=== PATIENT | female | born 1955 | race Caucasian/White ===

== ENCOUNTER 2017-02-11 12:20 | Observation (INO) | payer OTHER ==
[2017-02-11 12:25] VITALS: BMI 29.0
--- NOTE | 2017-02-11 12:44 | PDOC ---
History of Present Illness - General History Source: Patient Exam Limitations: No Limitations - History of Present Illness Initial Comments: 02/11/17 12:43 Patient is a 61 year old female with history of HTN and Hypothyroid c/o chest pain for one day. Patint states the pain started last night after dinner (18 hours ago). The pain started at rest, was 10/10 and radiated to the back. It was relieved to 7/10 with 2 Advil and patient went to sleep. Pain was initially minor on waking but went back up to 10/10 with an associated painful redness and swelling in her left index finger and along the toe pads of both her feet. Patient endorses having these symptoms at least two previous times: once 15 days ago and once some time before that. Patient also endorsing an epigastric "fullness/bloating" on exertion. Endorses coughing, hiccups and constipation; denies headache, fever, chills, recent illness, shortness of breath, palpations, abdominal pain, nausea, vomiting, and diarrhea. History of paternal PA at 49-50 Patient recently returned from a trip [place] PCP: Dr. Cavazos <Jorge Faria - Last Filed: 02/12/17 10:02> <Eleni Tellez - Last Filed: 02/13/17 15:41> - General Chief Complaint: Chest Pain Stated Complaint: CHEST PAIN, LT HAND/LEG SWELLING Time Seen by Provider: 02/11/17 12:38 Past History - Past Medical History HTN: Yes Thyroid Disease: Yes (HYPO.) - Surgical History Abdominal Surgery: Yes Neurologic Surgery: Yes (right knee surgery) - Suicide/Smoking/Psychosocial Hx Smoking Status: No Smoking History: Never smoked Have you smoked in the past 12 months: No Number of Cigarettes Smoked Daily: 0 Hx Alcohol Use: Yes (SOCIAL.) Drug/Substance Use Hx: No Substance Use Type: None <Jorge Faria - Last Filed: 02/12/17 10:02> <Eleni Tellez - Last Filed: 02/13/17 15:41> - Past Medical History Allergies/Adverse Reactions: Allergies Allergy/AdvReac Type Severity Reaction Status Date / Time No Known Allergies Allergy Verified 02/11/17 12:22 Home Medications: Ambulatory Orders Levothyroxine [Synthroid -] 25 mcg PO DAILY 04/08/15 Lisinopril [Zestril] 20 mg PO DAILY 02/11/17 Atorvastatin Ca [Lipitor] 10 mg PO HS #60 tablet 02/12/17 Lisinopril [Prinivil] 20 mg PO DAILY tablet 02/12/17 Review of Systems - Review of Systems Able to Perform ROS?: Yes Comments:: GEN: Denies fever, chills, recent illness HEENTM: Denies sore throat, neck pain, changes in vision, changes in hearing, ear pain, tinnitus Respiratory: +hiccups, +cough; Denies wheezing, shortness of breath Cardiac: +chest pain; Denies palpitations, lightheadedness, diaphoresis ABD/GI: Denies abdominal pain, nausea, vomiting, diarrhea, constipation : Denies dysuria, burning on urination, increased frequency of urination Musculoskeletal: Pain and swelling of the left first index finger and the pads of the MTP joints of both feet Integumentary: Denies rashes, bruises Neurological: Denies QUIÑONEZ, weakness, dizziness, loss of consciousness, tingling, numbness Hematologic/Lymphatic: Denies anemia, easy bleeding, history of blood clots. All Other Systems Reviewed and Negative Is the patient limited Luxembourger proficient: No <Jorge Faria - Last Filed: 02/12/17 10:02> *Physical Exam - Vital Signs Last Vital Signs Temp Pulse Resp BP Pulse Ox 98 F 104 H 18 156/89 98 02/11/17 12:22 02/11/17 12:22 02/11/17 12:22 02/11/17 12:22 02/11/17 12:22 - Physical Exam Comments: GENERAL: AAOx3, nourished and generally well appearing, NAD HEAD: NCAT EYES: PERRLA, EOMI, sclera anicteric, conjunctiva clear ENT: Auricles normal inspection, hearing grossly normal, nares patent, no nasal discharge, no congestion, oropharynx clear without exudates, MMM NECK: supple, normal ROM, no LAD, no JVD, no masses, no crepitus RESP: speaking in full sentences, lungs CTAB, symmetrical chest expansion, no respiratory distress HEART: tachycardic, regular rhythm, normal S1-S2, no MRG, peripheral pulses normal and equal bilaterally ABDOMEN: soft, NTND, nlBSx4, no guarding, no rebound, no masses MUSCULOSKELETAL: no CVA Tenderness EXTREMITIES: normal inspection, moving all extremities, full ROM, strength 5/5, sensation grossly intact; left second digit, left pad of first MTP and the pads of the right MTP are erythematous, edematous and mildly ttp NEUROLOGICAL: CN II-XII grossly intact, normal speech, normal gait, no focal sensorimotor deficits SKIN: warm, dry, normal turgor, no rashes or lesions noted. <Jorge Faria - Last Filed: 02/12/17 10:02> - Vital Signs Last Vital Signs Temp Pulse Resp BP Pulse Ox 97.9 F 86 20 124/65 96 02/12/17 07:44 02/12/17 07:44 02/12/17 09:00 02/12/17 07:44 02/12/17 09:00 <Eleni Tellez - Last Filed: 02/13/17 15:41> Heart Score/ECG Review - History History: Moderately suspicious - Electrocardiogram EKG: Non specific repolarization disturbance - Age Age: 45-65 - Risk Factors Risk Factors Heart Score: Yes Hx Hypertension, Yes Positive family hx of cardiac disease, Yes Hx Obesity Based on the list above the patient has:: >/=3 risk factors or Hx atherosclerotic disease - Troponin Troponin: </= normal limit - Score Heart Score - Total: 5 <Jorge Faria - Last Filed: 02/12/17 10:02> ED Treatment Course - LABORATORY CBC & Chemistry Diagram: 02/12/17 05:35 02/12/17 05:35 <Jorge Faria - Last Filed: 02/12/17 10:02> - LABORATORY CBC & Chemistry Diagram: 02/12/17 05:35 02/12/17 05:35 - ADDITIONAL ORDERS Additional order review: 02/11/17 14:00 RBC 4.72 MCV 87.6 MCHC 32.5 RDW 13.9 MPV 9.4 Neutrophils % 70.6 Lymphocytes % 20.5 Monocytes % 6.2 Eosinophils % 2.4 Basophils % 0.3 - Medications Given in the ED: ED Medications Discontinued Medications Generic Name Dose Route Start Last Admin Trade Name Freq PRN Reason Stop Dose Admin Levothyroxine Sodium 25 mcg 02/12/17 10:00 02/12/17 09:52 Synthroid - PO 25 mcg DAILY YUNG Administration Lisinopril 20 mg 02/12/17 10:00 02/12/17 09:52 Prinivil PO 20 mg DAILY YUNG Administration Pantoprazole Sodium 40 mg 02/12/17 10:00 02/12/17 09:52 Protonix - PO 40 mg DAILY YUNG Administration <Eleni Tellez - Last Filed: 02/13/17 15:41> Medical Decision Making - Medical Decision Making 02/11/17 14:46 61 year old female with recurring incidents of atypical chest pain, epigastric pain on exertion, feeling of having something stuck in the throat, +/- peripheral digit pain and swelling. Ddx is broad and includes but is not limited to ACS, aortic dissection, esophageal masses and strictures, pancreatitis, GERD vitals: Patient is tachycardic (104) with an elevated BP (156/89) CXR: no consolidation or opacity to suggest PNA or effusion, normal size and coutures of the cardiomediastinal silhouette. EKG: sinus rhythm, axis wnl, non-specific ST depressions in inferior leads 02/11/17 14:53 CBC WBC 8.7 K/mm3 (4.0-10.0) 02/11/17 14:00 RBC 4.72 M/mm3 (3.60-5.2) 02/11/17 14:00 Hgb 13.4 GM/dL (10.7-15.3) 02/11/17 14:00 Hct 41.3 % (32.4-45.2) 02/11/17 14:00 MCV 87.6 fl (80-96) 02/11/17 14:00 MCH 28.4 pg (25.7-33.7) 02/11/17 14:00 MCHC 32.5 g/dl (32.0-36.0) 02/11/17 14:00 RDW 13.9 % (11.6-15.6) 02/11/17 14:00 Plt Count 274 K/MM3 (134-434) 02/11/17 14:00 MPV 9.4 fl (7.5-11.1) 02/11/17 14:00 Neutrophils % 70.6 % (42.8-82.8) 02/11/17 14:00 Lymphocytes % 20.5 % (8-40) 02/11/17 14:00 Monocytes % 6.2 % (3.8-10.2) 02/11/17 14:00 Eosinophils % 2.4 % (0-4.5) 02/11/17 14:00 Basophils % 0.3 % (0-2.0) 02/11/17 14:00 Within normal limits CMP Sodium 140 mmol/L (136-145) 02/11/17 14:00 Potassium 4.5 mmol/L (3.5-5.1) 02/11/17 14:00 Chloride 104 mmol/L (98-107) 02/11/17 14:00 Carbon Dioxide 28 mmol/L (21-32) 02/11/17 14:00 Anion Gap 8 (8-16) 02/11/17 14:00 BUN 20 mg/dL (7-18) H 02/11/17 14:00 Creatinine 0.8 mg/dL (0.55-1.02) 02/11/17 14:00 Creat Clearance w eGFR > 60 (>60) 02/11/17 14:00 Random Glucose 83 mg/dL (74-106) 02/11/17 14:00 Calcium 9.2 mg/dL (8.5-10.1) 02/11/17 14:00 Total Bilirubin 0.3 mg/dL (0.2-1.0) 02/11/17 14:00 AST 28 U/L (15-37) 02/11/17 14:00 ALT 38 U/L (12-78) 02/11/17 14:00 Alkaline Phosphatase 104 U/L (45-117) 02/11/17 14:00 Creatine Kinase 107 IU/L (26-192) 02/11/17 14:00 Troponin I < 0.02 ng/ml (0.00-0.05) 02/11/17 14:00 Total Protein 8.0 g/dl (6.4-8.2) 02/11/17 14:00 Albumin 3.8 g/dl (3.4-5.0) 02/11/17 14:00 Lipase 196 U/L (73-393) 02/11/17 14:00 within normal limits (-) Troponin, 19 hours after start of pain, reassuring for ACS Lipase reassuring for pancreatic Laboratory Tests 02/11/17 14:00 PT with INR 11.20 INR 0.99 PTT (Actin FS) 27.3 02/11/17 15:09 Patient HEART score 4-6, MACE 13%, Cardio consult admit/obs Dr. Cavazos admits to hospitalist <Jorge Faria - Last Filed: 02/12/17 10:02> *DC/Admit/Observation/Transfer - Discharge Dispostion Admit: Yes <Jorge Faria - Last Filed: 02/12/17 10:02> <Eleni Tellez - Last Filed: 02/13/17 15:41> Diagnosis at time of Disposition: Atypical chest pain - Discharge Dispostion Disposition: HOME Condition at time of disposition: Improved - Prescriptions
--- NOTE | 2017-02-11 12:45 | PDOC ---
Attending Attestation - HPI HPI: 02/11/17 14:20 61 year old female, with PMH of hypothyroidism, and HTN, who presents to the emergency room complaining of 2 episodes of intermittent substernal chest pain that began last night. She describes the pain as 10/10 in severity that radiates to her back and occurs approximately 1 hour after eating. She also feels like something is stuck in her throat and chest. She states that she ate chicken and fried sweet potatoes for dinner last night, toast and coffee for breakfast this morning. She states that she has been hiccuping more recently. She notes that she had acid reflux in the past. She notes that she recently has been experiencing different chest pain that feels like pressure on exertion, such as walking around. The patient recently traveled to [facility] 15 days ago and also experienced an episode of chest pain while on vacation. The patient also reports 1 day of redness, swelling, and pain to the index finger of her left hand. She denies bites, recent injuries to that hand and finger. Denies fever, chills, nausea, vomiting. Denies abdominal pain. Denies LE swelling. Denies recent illness. Allergies: NKDA Family Hx: Father had an IL when he was 47 or 50 years old. PCP: Dr. Cavazos 02/11/17 15:01 <Stefanie Sesay - Last Filed: 02/11/17 15:01> - Resident Resident Name: Jorge Faria - ED Attending Attestation I have performed the following: I have examined & evaluated the patient, The case was reviewed & discussed with the resident, I agree w/resident's findings & plan, Exceptions are as noted - Physicial Exam PE: GENERAL: Awake, alert, and fully oriented, in no acute distress HEAD: No signs of trauma EYES: PERRLA, EOMI, sclera anicteric, conjunctiva clear ENT: Auricles normal inspection, hearing grossly normal, nares patent, oropharynx clear without exudates. Moist mucosa NECK: Normal ROM, supple, no lymphadenopathy, JVD, or masses LUNGS: Breath sounds equal, clear to auscultation bilaterally. No wheezes, and no crackles HEART: Regular rate and rhythm, normal S1 and S2, no murmurs, rubs or gallops ABDOMEN: Soft, nontender, normoactive bowel sounds. No guarding, no rebound. No masses EXTREMITIES: Normal range of motion, no edema. No clubbing or cyanosis. No cords, erythema, or tenderness NEUROLOGICAL: Cranial nerves II through XII grossly intact. Normal speech, normal gait SKIN: Warm, Dry, normal turgor. L index finger with erythema from tip to the PIP joint, no induration, no wounds. Nontender. - Medical Decision Making 02/11/17 16:49 Will admit for further workup, as she has ST depressions on her EKG, as well as recent episodes of severe chest pain, and recent exertional chest pressure. <Eleni Tellez - Last Filed: 02/11/17 16:51> Heart Score/ECG Review - History History: Highly suspicious - Electrocardiogram EKG: Non specific repolarization disturbance - Age Age: 45-65 - Risk Factors Risk Factors Heart Score: Yes Hx Hypertension, Yes Positive family hx of cardiac disease, Yes Hx Obesity Based on the list above the patient has:: 1-2 risk factors - Troponin Troponin: </= normal limit - Score Heart Score - Total: 5 - ECG Impressions Comment:: EKG read 12:33- NSR 93 bpm, ST dep inferior leads, with Q waves inferiorly as well. +Q waves I, V5, and V6. <Eleni Tellez - Last Filed: 02/11/17 16:51>
[2017-02-11 14:21] LABS: BASOPHIL 0.3 % (0-2.0); EOSINOPHIL 2.4 % (0-4.5); MCH 28.4 pg (25.7-33.7); MCHC 32.5 g/dl (32.0-36.0); MEAN CELL VOLUME 87.6 fl (80-96); MEAN PLT VOLUME 9.4 fl (7.5-11.1); NEUTROPHILS 70.6 % (42.8-82.8); PLATELET COUNT 274 K/MM3 (134-434); RDW 13.9 % (11.6-15.6); WHITE BLOOD COUNT 8.7 K/mm3 (4.0-10.0)
[2017-02-11 14:36] LABS: ALBUMIN 3.8 g/dl (3.4-5.0); ANION GAP 8 (8-16); BILIRUBIN,TOTAL 0.3 mg/dL (0.2-1.0); CALCIUM 9.2 mg/dL (8.5-10.1); CO2 28 mmol/L (21-32); CREATININE 0.8 mg/dL (0.55-1.02); GLUCOSE,RANDOM 83 mg/dL (74-106); SGPT/ALT 38 U/L (12-78)
[2017-02-11 14:38] LABS: ALK PHOS 104 U/L (45-117); CPK 107 IU/L (26-192); TROPONIN I < 0.02 ng/ml (0.00-0.05)
[2017-02-11 14:47] LABS: INR 0.99 (0.82-1.09); PROTHROMBIN TIME (PATIENT) 11.2 SEC (9.98-11.88)
[2017-02-11 14:50] LABS: ACTIVATED PTT 27.3 SECONDS (26.9-34.4)
[2017-02-11 14:56] LABS: SGOT/AST 28 U/L (15-37)
[2017-02-11 16:25] LABS: THYROID STIMULATING HORMONE 2.37 uIU/ml (0.358-3.74)
--- NOTE | 2017-02-11 18:17 | HP ---
CHIEF COMPLAINT: intermittent substernal chest pain that began last night PCP: HISTORY OF PRESENT ILLNESS: Patient is a 61 year old female, with PMH of hypothyroidism, and HTN, who presents to the emergency room complaining of 2 episodes of intermittent substernal chest pain that began last night. She describes the pain as "pressure " that radiates to her back that worsens when she eats. States that the chest pain worsens with exertion such as when she ambulates. She is also reporting intermittent episodes of hiccups. The patient recently traveled to [facility] and experienced an episode of chest pain while on vacation. The patient also reports 1 day of redness, swelling, and pain to the index finger of her left hand which is currently still there. She states she gets this left hand index finger pain intermittently. She denies insect bites, recent injuries to that hand and finger. Denies any other trauma. ER course was notable for: (1) trop negative x 1 (2) +crackles on bilateral lungs (3) left index finger swelling, pain Recent Travel: [facility] PAST MEDICAL HISTORY: hypothyroidism, and HTN PAST SURGICAL HISTORY: Social History: Smoking: denies Alcohol: denies Drugs: denies Family History: Allergies No Known Allergies Allergy (Verified 02/11/17 12:22) HOME MEDICATIONS: Home Medications Medication Instructions Recorded Levothyroxine [Synthroid -] 25 mcg PO DAILY 04/08/15 Lisinopril [Zestril] 20 mg PO DAILY 02/11/17 REVIEW OF SYSTEMS CONSTITUTIONAL: Absent: fever, chills, diaphoresis, generalized weakness, malaise, loss of appetite, weight change HEENT: Absent: rhinorrhea, nasal congestion, throat pain, throat swelling, difficulty swallowing, mouth swelling, ear pain, eye pain, visual changes CARDIOVASCULAR: Absent: chest pain, syncope, palpitations, irregular heart rate, lightheadedness , peripheral edema RESPIRATORY: Absent: cough, shortness of breath, dyspnea with exertion, orthopnea, wheezing, stridor, hemoptysis GASTROINTESTINAL: Absent: abdominal pain, abdominal distension, nausea, vomiting, diarrhea, constipation, melena, hematochezia GENITOURINARY: Absent: dysuria, frequency, urgency, hesitancy, hematuria, flank pain, genital pain SKIN: Absent: rash, itching, pallor HEMATOLOGIC/IMMUNOLOGIC: Absent: easy bleeding, easy bruising, lymphadenopathy, frequent infections ENDOCRINE: Absent: unexplained weight gain, unexplained weight loss, heat intolerance, cold intolerance NEUROLOGIC: Absent: headache, focal weakness or paresthesias, dizziness, unsteady gait, seizure, mental status changes, bladder or bowel incontinence PSYCHIATRIC: Absent: anxiety, depression, suicidal or homicidal ideation, hallucinations. PHYSICAL EXAMINATION GENERAL: Awake, alert, and fully oriented, in no acute distress. HEAD: Normal with no signs of trauma. EYES: Pupils equal, round and reactive to light, extraocular movements intact, sclera anicteric, conjunctiva clear. No lid lag. EARS, NOSE, THROAT: Ears normal, nares patent, oropharynx clear without exudates. Moist mucous membranes. NECK: Normal range of motion, supple without lymphadenopathy, JVD, or masses. LUNGS: + crackles on bilatera lung bases HEART: Regular rate and rhythm, normal S1 and S2 without murmur, rub or gallop. ABDOMEN: Soft, nontender, not distended, normoactive bowel sounds, no guarding, no rebound, no masses. No hepatomegaly or splenomegaly. MUSCULOSKELETAL: Normal range of motion at all joints. No bony deformities or tenderness. No CVA tenderness. UPPER EXTREMITIES: left hand index finger joint swelling, and pain, no deformity LOWER EXTREMITIES: 2+ pulses, warm, well-perfused. No calf tenderness. No peripheral edema. NEUROLOGICAL: Cranial nerves II-XII intact. Normal speech. Normal gait. PSYCHIATRIC: Cooperative. Good eye contact. Appropriate mood and affect. SKIN: Warm, dry, normal turgor, no rashes or lesions noted, normal capillary refill. ASSESSMENT/PLAN: Patient is a 61 year old female, with PMH of hypothyroidism, and HTN, who presents to the emergency room complaining of 2 episodes of intermittent substernal chest pain that began last night. She describes the pain as "pressure " that radiates to her back that worsens when she eats. States that the chest pain worsens with exertion such as when she ambulates. She is also reporting intermittent episodes of hiccups. The patient recently traveled to [facility] and experienced an episode of chest pain while on vacation. The patient also reports 1 day of redness, swelling, and pain to the index finger of her left hand which is currently still there. She states she gets this left hand index finger pain intermittently. She denies insect bites, recent injuries to that hand and finger. Denies any other trauma. Cardiology: Chest pain, acute Rule out ACS Trend trops Echo Cardiology consult CTA to rule out PE 2/2 recent travel and atypical chest pain Vascular rule out DVT Cardiac monitoring Hypertension On Lisinopril, monitor BP Muscular/Skeletal:L Hand xray for left index finger pain and swelling Pulmonary CTA to rule out PE + crackles on bilateral lung bases Recent plane travel F.E.N. Fluids: tolerating PO monitor electrolytes low sodium diet Disposition. OBS. full code
[2017-02-12 02:18] VITALS: TEMP 97.9
[2017-02-12 07:48] VITALS: BP 124/65; PULSE 86
[2017-02-12 07:48] LABS: BASOPHIL 0.3 % (0-2.0); EOSINOPHIL 5.1 % (0-4.5); MCH 28.6 pg (25.7-33.7); MCHC 32.5 g/dl (32.0-36.0); MEAN PLT VOLUME 9.8 fl (7.5-11.1); NEUTROPHILS 49.8 % (42.8-82.8); PLATELET COUNT 256 K/MM3 (134-434); RDW 14.3 % (11.6-15.6); WHITE BLOOD COUNT 7.2 K/mm3 (4.0-10.0)
--- NOTE | 2017-02-12 08:45 | CONSULT ---
Consult - text type - Consultation Consultation Note: Cardiology 61 year old female with history of HTN and Hypothyroid c/o chest pain for 2 weeks, retro-sternally; chronic cough and maybe dyspnea. She also has painful redness and swelling in her left index finger and along the toe pads of both her feet. social NA allergy NA FH CAD Op C section, right knee PMH above PE: vitals stable normal cardio-pulmonary exam abdomen soft no leg edema EKG NSR subtle/trivial ST changes Impression: atypical symptoms, no FL or CHF telemetry unremarkable patient does not want to stay for the weekend Rec: Follow-up apt 02/14/17 for further cardiac evaluation.
[2017-02-12 08:52] LABS: ALBUMIN 3.4 g/dl (3.4-5.0); ALK PHOS 98 U/L (45-117); ANION GAP 6 (8-16); BILIRUBIN,TOTAL 0.4 mg/dL (0.2-1.0); CALCIUM 8.8 mg/dL (8.5-10.1); CHOLESTEROL 213 mg/dL (50-200); CO2 28 mmol/L (21-32); CREATININE 0.7 mg/dL (0.55-1.02); GLUCOSE,RANDOM 75 mg/dL (74-106); MAGNESIUM 2.4 mg/dL (1.8-2.4); SGOT/AST 24 U/L (15-37); SGPT/ALT 34 U/L (12-78); THYROID STIMULATING HORMONE 4.32 uIU/ml (0.358-3.74); TOT PROT 7.3 g/dl (6.4-8.2)
[2017-02-12] MEDS ORDERED: LISINOPRIL 20 MG TABLET (FP) PO SCH (10:00)
[2017-02-12] MEDS ORDERED: PANTOPRAZOLE 40 MG TABLET (FP) PO SCH (10:00)
[2017-02-12] MEDS ORDERED: LEVOTHYROXINE NA 25 MCG TABLET (FP) PO SCH (10:00)
--- NOTE | 2017-02-12 10:20 | DS ---
Physical Exam: SUBJECTIVE: Patient seen and examined. Ambulating up and down the hallways. OBJECTIVE: TSH to be rechecked by primary physician, labs here show normal TSH on 02/10, now elevated? Will not increase Synthroid dose, pt to see her PCP on 02/17/17, has appointment Patient to follow up with Dr. Manuel She was ambulating up and down the pod without any c/o of shortness of breath, chest pain or discomfort Vital Signs Period Temp Pulse Resp BP Sys/Palmer Pulse Ox Last 24 Hr 97.8 F-97.9 F 69-90 18-20 121-151/56-70 96-96 PHYSICAL EXAM GENERAL: Awake, alert, and fully oriented, in no acute distress. HEAD: Normal with no signs of trauma. EYES: Pupils equal, round and reactive to light, extraocular movements intact, sclera anicteric, conjunctiva clear. No lid lag. EARS, NOSE, THROAT: Ears normal, nares patent, oropharynx clear without exudates. Moist mucous membranes. NECK: Normal range of motion, supple without lymphadenopathy, JVD, or masses. LUNGS: + crackles on bilatera lung bases HEART: Regular rate and rhythm, normal S1 and S2 without murmur, rub or gallop. ABDOMEN: Soft, nontender, not distended, normoactive bowel sounds, no guarding, no rebound, no masses. No hepatomegaly or splenomegaly. MUSCULOSKELETAL: Normal range of motion at all joints. No bony deformities or tenderness. No CVA tenderness. UPPER EXTREMITIES: left hand index finger mild joint swelling, and pain, no deformity, no fracture LOWER EXTREMITIES: 2+ pulses, warm, well-perfused. No calf tenderness. No peripheral edema. NEUROLOGICAL: Cranial nerves II-XII intact. Normal speech. Normal gait. PSYCHIATRIC: Cooperative. Good eye contact. Appropriate mood and affect. SKIN: Warm, dry, normal turgor, no rashes or lesions noted, normal capillary refill. LABS Laboratory Results - last 24 hr 02/11/17 02/12/17 02/12/17 20:55 05:35 05:35 WBC 7.2 RBC 4.47 Hgb 12.8 Hct 39.3 MCV 88.0 MCH 28.6 MCHC 32.5 RDW 14.3 Plt Count 256 MPV 9.8 Neutrophils % 49.8 D Lymphocytes % 37.7 D Monocytes % 7.1 Eosinophils % 5.1 H D Basophils % 0.3 Sodium 140 Potassium 4.3 Chloride 106 Carbon Dioxide 28 Anion Gap 6 L BUN 16 Creatinine 0.7 Creat Clearance w eGFR > 60 Random Glucose 75 Calcium 8.8 Magnesium 2.4 Total Bilirubin 0.4 D AST 24 ALT 34 Alkaline Phosphatase 98 Troponin I < 0.02 Total Protein 7.3 Albumin 3.4 Triglycerides 74 Cholesterol 213 H Total LDL Cholesterol 133 H HDL Cholesterol 60 TSH 4.32 H D 02/12/17 08:25 WBC RBC Hgb Hct MCV MCH MCHC RDW Plt Count MPV Neutrophils % Lymphocytes % Monocytes % Eosinophils % Basophils % Sodium Potassium Chloride Carbon Dioxide Anion Gap BUN Creatinine Creat Clearance w eGFR Random Glucose Calcium Magnesium Total Bilirubin AST ALT Alkaline Phosphatase Troponin I < 0.02 Total Protein Albumin Triglycerides Cholesterol Total LDL Cholesterol HDL Cholesterol TSH HOSPITAL COURSE: Date of Admission:02/11/17 Date of Discharge: 02/12/17 ASSESSMENT/PLAN: Patient is a 61 year old female, with PMH of hypothyroidism, and HTN, who presents to the emergency room complaining of 2 episodes of intermittent substernal chest pain that began last night. She describes the pain as "pressure " that radiates to her back that worsens when she eats. States that the chest pain worsens with exertion such as when she ambulates. She is also reporting intermittent episodes of hiccups. The patient recently traveled to [facility] and experienced an episode of chest pain while on vacation. The patient also reports 1 day of redness, swelling, and pain to the index finger of her left hand which is currently still there. She states she gets this left hand index finger pain intermittently. She denies insect bites, recent injuries to that hand and finger. Denies any other trauma. On exam, patient denies any chest pain, shortness of breath. She is ambulating without dyspnea, tolerating room air. Cardiology: Chest pain, resolved Ruled out for ACS, cleared by mattress filling machine tender No events on telemonitoring EKG NRS with ST changes Troponins negative x 3 No shortness of breath with ambulation CTA to ruled out PE Vascular ruled out DVT Follow-up apt 02/14/17 for further cardiac evaluation. Hypertension, controlled On Lisinopril, monitor BP Muscular/Skeletal Hand xray for left index finger pain and swelling negative for fracture Pulmonary CTA ruled out PE Disposition. Discharge home with cardiology appointment on 02/14/2017 for further cardiac evaluation. Minutes to complete discharge: 60 Discharge Summary Reason For Visit: ATYPICAL CHEST PAIN Current Active Problems Atypical chest pain (Acute) Condition: Improved - Instructions Diet, Activity, Other Instructions: Mrs. Browning: Please follow up withe the mattress filling machine tender on 02/14/2017 as discussed. Please see your primary care doctor on 02/17/2017. Your cholesterol is elevated, new medication is Lipitor 10mg and it has been called to your pharmacy. Please have your TSH level rechecked with your primary care doctor. If you have any questions, please call me: Vicki Shetty [facility] [phone] Referrals: Minh Manuel MD [Staff Physician] - Lavern Jimenez MD [Staff Physician] - Disposition: HOME - Home Medications Comprehensive Discharge Medication List: Ambulatory Orders Levothyroxine [Synthroid -] 25 mcg PO DAILY 04/08/15 Lisinopril [Zestril] 20 mg PO DAILY 02/11/17 This patient is new to me today: Yes Date on this admission: 02/12/17 Emergency Visit: Yes ED Registration Date: 02/11/17 Care time: The patient presented to the Emergency Department on the above date and was hospitalized for further evaluation of their emergent condition. Critical Care patient: No - Discharge Referral Referred to [facility] Med [facility] No
--- NOTE | 2017-02-12 13:14 | EKG ---
Test Reason : Blood Pressure : / mmHG Vent. Rate : 093 BPM Atrial Rate : 093 BPM P-R Int : 150 ms QRS Dur : 074 ms QT Int : 354 ms P-R-T Axes : 078 062 049 degrees QTc Int : 440 ms NORMAL SINUS RHYTHM POSSIBLE LEFT ATRIAL ENLARGEMENT NONSPECIFIC ST ABNORMALITY ABNORMAL ECG WHEN COMPARED WITH ECG OF 20-FEB-2007 10:46, NONSPECIFIC T WAVE ABNORMALITY NOW EVIDENT IN INFERIOR LEADS CLINICAL CORRELATION IS RECOMMENDED Confirmed by ROSA MENG, AMY ([id number] on 02/12/2017 1:13:35 PM Referred By: Confirmed By:AMY LEE MD
[2017-02-12] MEDS ORDERED: ATORVASTATIN CA 10 MG TABLET (FP) PO SCH (22:00)
== END 2017-02-12 11:22 | disposition home or self-care (01) ==
LOC: JER 12:20 → JERBED 17:14 → J4W 18:32
PROVIDERS: ADMIT Internal Medicine; ATTEND Nurse Practitioner Family
DX: R07.89 Other chest pain (principal); I10 Essential (primary) hypertension; E03.9 Hypothyroidism, unspecified
CPT/HCPCS: 36415; 71020-TC; 71275-TC; 73130-TC-LT; 80053; 80061; 82550; 83036; 83690; 83721; 83735; 84443; 84484; 85025; 85610; 85730; 93005; 93010; 93970-TC; 99284-25; G0378

== ENCOUNTER 2019-03-07 19:18 | Emergency (ER) | payer OTHER ==
[2019-03-07 19:30] VITALS: BP 172/83; PULSE 85; TEMP 97.9; BMI 29.4
[2019-03-07] MEDS ORDERED: KETOROLAC TROMETHAMINE 60 MG/2 ML VIAL IM ONE (20:23)
[2019-03-07] MEDS ORDERED: KETOROLAC TROMETHAMINE 60 MG/2 ML VIAL ONE (20:24)
--- NOTE | 2019-03-07 20:25 | PDOC ---
History of Present Illness - General Chief Complaint: Pain, Acute Stated Complaint: R/PATELLA/PAIN Time Seen by Provider: 03/07/19 19:54 - History of Present Illness Initial Comments: 03/07/19 20:23 64-year-old female with a past medical history of hypothyroidism and hypertension presents for evaluation of atraumatic onset of right knee pain x3 weeks without systemic symptoms. Past History - Past Medical History Allergies/Adverse Reactions: Allergies Allergy/AdvReac Type Severity Reaction Status Date / Time No Known Allergies Allergy Verified 02/11/17 12:22 Home Medications: Ambulatory Orders Levothyroxine [Synthroid -] 25 mcg PO DAILY 04/08/15 Lisinopril [Zestril] 20 mg PO DAILY 02/11/17 Atorvastatin Ca [Lipitor] 10 mg PO HS #60 tablet 02/12/17 Lisinopril [Prinivil] 20 mg PO DAILY tablet 02/12/17 HTN: Yes Thyroid Disease: Yes (HYPO.) - Surgical History Abdominal Surgery: Yes Neurologic Surgery: Yes (right knee surgery) - Psycho Social/Smoking Cessation Hx Smoking Status: No Smoking History: Never smoked Have you smoked in the past 12 months: No Number of Cigarettes Smoked Daily: 0 Hx Alcohol Use: No Drug/Substance Use Hx: No Substance Use Type: None Hx Substance Use Treatment: No Review of Systems - Review of Systems Constitutional: No: Fever Musculoskeletal: Yes: Joint Pain *Physical Exam - Vital Signs Last Vital Signs Temp Pulse Resp BP Pulse Ox 97.9 F 85 20 172/83 H 97 03/07/19 19:26 03/07/19 19:26 03/07/19 19:26 03/07/19 19:26 03/07/19 19:26 - Physical Exam Comments: 03/07/19 20:23 Right knee skin color and temperature normal. There is an obliquely oriented scar across the anterior aspect of the knee from a prior patellofemoral surgery she had done 30 years ago. Full range of motion with crepitation and discomfort at terminal ranges. No instability thighs and calves are soft and nontender no gross sensorimotor deficits full range of motion of the hip and ankle neurovascular intact Medical Decision Making - Medical Decision Making 03/07/19 20:23 Most likely right knee arthritis will defer x-rays to orthopedic surgery as we do not do standing AP views of the knee in the ER Toradol for pain management now Tylenol Motrin at home Discharge - Discharge Information Problems reviewed: Yes Clinical Impression/Diagnosis: Osteoarthritis of right knee Condition: Stable Disposition: HOME - Admission No - Follow up/Referral Referrals: Lavern Jimenez MD [Primary Care Provider] - Christophe Inman DO [Staff Physician] - - Patient Discharge Instructions Additional Instructions: Tylenol and Motrin as directed for pain. Do not take any Motrin today. You may start Motrin tomorrow you may take Tylenol when you get home. You were given an injection of a long-acting anti-inflammatory. Taking Motrin on top of this will bother your stomach. Return to the emergency room for worsening symptoms. Without fail, please follow-up with orthopedic surgery in 1 to 2 days for further evaluation and treatment options. - Post Discharge Activity
== END 2019-03-07 20:29 | disposition home or self-care (01) ==
LOC: JERFT 19:18
PROC: 3E0233Z Introduction of Anti-inflammatory into Muscle, Percutaneous Approach (ICD-10-PCS; principal; 2019-03-07)
DX: M17.11 Unilateral primary osteoarthritis, right knee (principal); E03.9 Hypothyroidism, unspecified; I10 Essential (primary) hypertension
CPT/HCPCS: 99281-25

== ENCOUNTER 2020-09-29 09:14 | Day surgery (SDC) | payer OTHER ==
[2020-09-19 11:43] VITALS: BMI 30.2
[2020-09-29] MEDS ORDERED: MIDAZOLAM HCL 2 MG/2 ML SINGLE DOSE VIAL ONE (09:28)
[2020-09-29] MEDS ORDERED: LIDOCAINE HCL/PF 2% SDV 5ML VIAL ONE (09:28)
[2020-09-29] MEDS ORDERED: PROPOFOL 20 ML ONE (09:28)
[2020-09-29] MEDS ORDERED: DEXAMETHASONE SOD PHOSPHATE 4 MG/1 ML VIAL ONE (09:29)
[2020-09-29] MEDS ORDERED: ONDANSETRON 4 MG/2 ML VIAL ONE (09:29)
[2020-09-29] MEDS ORDERED: KETOROLAC TROMETHAMINE 30 MG/1 ML VIAL ONE (09:29)
[2020-09-29] MEDS ORDERED: ceFAZolin SODIUM 1 GM VIAL ONE (10:06)
[2020-09-29] MEDS ORDERED: BUPIVACAINE HCL/PF 0.25% (2.5MG/ML) 10 ML VIAL ONE (10:36)
[2020-09-29] MEDS ORDERED: BUPIVACAINE HCL/PF 0.25% (2.5MG/ML) 10 ML VIAL IJ ONE (10:42)
[2020-09-29] MEDS ORDERED: ONDANSETRON 4 MG/2 ML VIAL IVPUSH PRN (10:55)
[2020-09-29] MEDS ORDERED: oxyCODONE HCL 5 MG TABLET PO PRN ×2 (11:59)
[2020-09-29 12:45] VITALS: TEMP 97.9
[2020-09-29 14:47] VITALS: BP 148/78; PULSE 74
== END 2020-09-29 13:45 | disposition home or self-care (01) ==
LOC: FASU 09:14
PROVIDERS: ATTEND Orthopaedic Surgery Sports Medicine
PROC: 0SBD4ZZ Excision of Left Knee Joint, Percutaneous Endoscopic Approach (ICD-10-PCS; principal; 2020-09-29 10:23)
PROC: 0SBD4ZZ Excision of Left Knee Joint, Percutaneous Endoscopic Approach (ICD-10-PCS; 2020-09-29 10:23)
DX: S83.242A Other tear of medial meniscus, current injury, left knee, initial encounter (principal); M94.262 Chondromalacia, left knee; M65.9 Synovitis and tenosynovitis, unspecified; X58.XXXA Exposure to other specified factors, initial encounter
CPT/HCPCS: 88304-TC; 94760

== ENCOUNTER 2021-12-12 10:31 | Emergency (ER) | payer OTHER ==
[2021-12-12 10:46] VITALS: BP 172/72; PULSE 74; RESP 18; TEMP 98; BMI 29.8
[2021-12-12] MEDS ORDERED: KETOROLAC TROMETHAMINE 60 MG/2 ML VIAL IM ONE (11:33)
[2021-12-12] MEDS ORDERED: LIDOCAINE 5% TOPICAL PATCH TP ONE (11:33)
[2021-12-12] MEDS ORDERED: METHOCARBAMOL 500 MG TABLET PO ONE (11:33)
[2021-12-12] MEDS ORDERED: KETOROLAC TROMETHAMINE 30 MG/1 ML VIAL ONE (11:42)
[2021-12-12] MEDS ORDERED: METHOCARBAMOL 500 MG TABLET ONE (11:42)
[2021-12-12] MEDS ORDERED: LIDOCAINE 5% TOPICAL PATCH ONE (11:42)
[2021-12-12] MEDS ORDERED: LIDOCAINE PATCH REMOVAL MC SCH (22:00)
== END 2021-12-12 12:27 | disposition home or self-care (01) ==
LOC: JERFT 10:31 → JER 10:31 → JERFT 12:27
PROC: 3E0233Z Introduction of Anti-inflammatory into Muscle, Percutaneous Approach (ICD-10-PCS; principal; 2021-12-12)
DX: M54.50 Low back pain, unspecified (principal)
CPT/HCPCS: 72100-TC-FY; 96372; 99284-25

== ENCOUNTER 2022-04-05 10:30 | Inpatient (IN) | payer OTHER ==
[2022-04-16] MEDS ORDERED: TRANEXAMIC ACID 1000 MG/10 ML VIAL IVPUSH ONE (06:55)
[2022-04-16 07:15] VITALS: BMI 27.8
[2022-04-16] MEDS ORDERED: VANCOMYCIN 1 GM in D5W (PRE-DOCKED) 1,000 MG/250 ML IVPB ONE (07:15)
[2022-04-16] MEDS ORDERED: CEFAZOLIN 2 GM in DEXTROSE 5%-WATER - 50 ML IVPB ONE (07:15)
[2022-04-16] MEDS ORDERED: VANCOMYCIN 1,000 MG VIAL (RESTRICTED TO ID ONLY) ONE ×2 (07:17→08:38)
[2022-04-16] MEDS ORDERED: BUPIVACAINE LIPOSOME/PF (EXPAREL) 266 MG/20 ML VIAL ONE (07:44)
[2022-04-16] MEDS ORDERED: MIDAZOLAM HCL 2 MG/2 ML SINGLE DOSE VIAL ONE (07:44)
[2022-04-16] MEDS ORDERED: BUPIVACAINE HCL/PF 0.5% (5MG/ML) 10 ML VIAL ONE (07:45)
[2022-04-16] MEDS ORDERED: TRANEXAMIC ACID 1000 MG/10 ML VIAL ONE ×2 (08:50→10:23)
[2022-04-16] MEDS ORDERED: DEXAMETHASONE SOD PHOSPHATE 4 MG/1 ML VIAL ONE (08:50)
[2022-04-16] MEDS ORDERED: ONDANSETRON 4 MG/2 ML VIAL ONE (08:50)
[2022-04-16] MEDS ORDERED: ceFAZolin SODIUM 1 GM VIAL ONE (08:50)
[2022-04-16] MEDS ORDERED: PROPOFOL 20 ML ONE ×2 (08:53→08:59)
[2022-04-16] MEDS ORDERED: BUPIVICAINE 0.25%/MORPH PF/KETOROLAC - 51ML DISP.SYRINGE IA ONE (10:00)
[2022-04-16] MEDS ORDERED: ONDANSETRON 4 MG/2 ML VIAL IVPUSH PRN (10:55)
[2022-04-16] MEDS ORDERED: MAG HYDROX/AL HYDROX/SIMETH 30 ML UNIT-DOSE CUP PO PRN (10:55)
[2022-04-16] MEDS ORDERED: LACTATED RINGERS SOLUTION 1,000 ML IV SCH (11:00)
[2022-04-16] MEDS ORDERED: ACETAMINOPHEN 1000 MG/100 ML BAG IVPB ONE (11:42)
[2022-04-16] MEDS ORDERED: oxyCODONE HCL 5 MG TABLET PO PRN ×2 (11:42)
[2022-04-16] MEDS: KETOROLAC TROMETHAMINE 30 MG/1 ML VIAL IVPUSH SCH ×2 (12:00→17:24)
[2022-04-16] MEDS: ACETAMINOPHEN 500 MG TABLET (FP) PO SCH ×3 (12:00→23:45)
[2022-04-16 14:34] VITALS: RESP 18
[2022-04-16] MEDS: CEFAZOLIN 2 GM in DEXTROSE 5%-WATER - 50 ML IVPB SCH (17:23)
[2022-04-16] MEDS ORDERED: ATORVASTATIN CA 10 MG TABLET (FP) PO SCH (22:00)
[2022-04-16] MEDS: oxyCODONE HCL 10 MG SUSTAINED ACTING TABLET PO SCH (22:49)
[2022-04-17] MEDS: CEFAZOLIN 2 GM in DEXTROSE 5%-WATER - 50 ML IVPB SCH ×2 (00:40→09:33)
[2022-04-17] MEDS: ACETAMINOPHEN 500 MG TABLET (FP) PO SCH ×2 (06:52→12:07)
[2022-04-17] MEDS ORDERED: LEVOTHYROXINE NA 50 MCG TABLET (FP) PO SCH (07:00)
[2022-04-17 08:20] LABS: CALCIUM 8.8 mg/dl (8.5-10); CREATININE 0.9 mg/dl (0.55-1.3)
[2022-04-17 08:23] LABS: HEMATOCRIT 34.1 % (32.4-45.2); HEMOGLOBIN 11.3 G/dL (10.7-15.3); MCH 29.8 pg (25.7-33.7); MCHC 33.1 g/dl (32.0-36.0); MEAN CELL VOLUME 90.1 fl (80-96); MEAN PLT VOLUME 9.8 fl (7.5-11.1); PLATELET COUNT 222.9 10^3/uL (134-434); RBC 3.79 10^6/uL (3.60-5.2); RDW 13.7 % (11.6-15.6); WHITE BLOOD COUNT 9.5 10^3/uL (4.0-10.8)
[2022-04-17] MEDS: oxyCODONE HCL 10 MG SUSTAINED ACTING TABLET PO SCH (09:32)
[2022-04-17] MEDS ORDERED: MULTIVITAMINS (DAILY MVI) TABLET (FP) PO SCH (10:00)
[2022-04-17] MEDS ORDERED: ASPIRIN 325 MG TABLET PO SCH (10:00)
[2022-04-17] MEDS ORDERED: PANTOPRAZOLE 40 MG TABLET PO SCH (10:00)
[2022-04-17] MEDS ORDERED: LOSARTAN POTASSIUM 50 MG TABLET PO SCH (10:00)
[2022-04-17 14:04] VITALS: BP 129/63; PULSE 73; TEMP 98.2
[2022-04-17] MEDS ORDERED: ACETAMINOPHEN 500 MG TABLET (FP) PO SCH (20:00)
== END 2022-04-17 15:48 | disposition home or self-care (01) | DRG 470 ==
LOC: FM/S 04-16 06:28
PROVIDERS: ADMIT Internal Medicine; ATTEND Internal Medicine
PROC: 8E0Y0CZ Robotic Assisted Procedure of Lower Extremity, Open Approach (ICD-10-PCS; 2022-04-16)
PROC: 0SRC0J9 Replacement of Right Knee Joint with Synthetic Substitute, Cemented, Open Approach (ICD-10-PCS; principal; 2022-04-16 09:27)
DX: M17.11 Unilateral primary osteoarthritis, right knee (principal); I10 Essential (primary) hypertension; E03.9 Hypothyroidism, unspecified
CPT/HCPCS: 36415; 73560-TC-RT-FY; 80048; 85027; 88305-TC; 88311-TC; 94760; 97010-GP; 97116-GP; 97162-GP; 99285-25; C1889

== ENCOUNTER 2022-06-11 09:53 | Emergency (ER) | payer OTHER ==
[2022-06-11 10:10] VITALS: TEMP 97.8; BMI 29.8
[2022-06-11] MEDS ORDERED: BACLOFEN 10 MG TABLET (FP) PO ONE (11:31)
[2022-06-11] MEDS ORDERED: LIDOCAINE 5% TOPICAL PATCH TP ONE (11:32)
[2022-06-11] MEDS ORDERED: KETOROLAC TROMETHAMINE 15 MG/ML VIAL IM ONE (11:32)
[2022-06-11] MEDS ORDERED: ACETAMINOPHEN 325 MG TABLET (FP) PO ONE (11:32)
[2022-06-11] MEDS ORDERED: BACLOFEN 10 MG TABLET (FP) ONE (11:34)
[2022-06-11] MEDS ORDERED: ACETAMINOPHEN 325 MG TABLET (FP) ONE (11:34)
[2022-06-11] MEDS ORDERED: KETOROLAC TROMETHAMINE 15 MG/ML VIAL ONE (11:34)
[2022-06-11] MEDS ORDERED: LIDOCAINE 5% TOPICAL PATCH ONE (11:34)
[2022-06-11 12:27] VITALS: BP 163/87; PULSE 79; RESP 20
[2022-06-11] MEDS ORDERED: LIDOCAINE PATCH REMOVAL MC SCH (22:00)
== END 2022-06-11 13:26 | disposition home or self-care (01) ==
LOC: JER 09:53
PROC: 3E0233Z Introduction of Anti-inflammatory into Muscle, Percutaneous Approach (ICD-10-PCS; principal; 2022-06-11)
DX: M54.50 Low back pain, unspecified (principal); G89.29 Other chronic pain
CPT/HCPCS: 99284-25; J0475

== ENCOUNTER 2023-06-13 21:56 | Observation (INO) | payer OTHER ==
[2023-06-13 22:06] VITALS: BMI 29.6
[2023-06-13 22:41] LABS: BASO % 0.5 % (0-2.0); EOS % 10.4 % (0-4.5); HEMATOCRIT 39.3 % (32.4-45.2); HEMOGLOBIN 13.2 GM/dL (10.7-15.3); LYMPH % 44.5 % (8-40); MCH 29.3 pg (25.7-33.7); MCHC 33.5 g/dl (32.0-36.0); MEAN CELL VOLUME 87.4 fl (80-96); MEAN PLT VOLUME 8.9 fl (7.5-11.1); NEUT % 37.6 % (42.8-82.8); PLATELET COUNT 252 10^3/uL (134-434); RDW 14.4 % (11.6-15.6); WHITE BLOOD COUNT 7.3 K/mm3 (4.0-10.0)
[2023-06-13] MEDS ORDERED: ASPIRIN 81 MG CHEWABLE TABLETS ONE (22:46)
[2023-06-13] MEDS ORDERED: ACETAMINOPHEN INJECTION 100 ML IVPB ONE (22:46)
[2023-06-13] MEDS ORDERED: LOSARTAN POTASSIUM 50 MG TABLET ONE (22:46)
[2023-06-13 22:47] LABS: INR 1.03 (0.83-1.09)
[2023-06-13 22:49] LABS: ACTIVATED PTT 29.6 SECONDS (25.2-36.5)
[2023-06-13] MEDS: ACETAMINOPHEN 1000 MG/100 ML BAG IVPB ONE (22:51)
[2023-06-13] MEDS: ASPIRIN 81 MG CHEWABLE TABLETS PO ONE (22:51)
[2023-06-13] MEDS: LOSARTAN POTASSIUM 50 MG TABLET PO ONE (22:51)
[2023-06-13 22:59] LABS: POTASSIUM 4.1 mmol/L (3.5-5.1)
[2023-06-13 23:01] LABS: CALCIUM 9.3 mg/dL (8.5-10.1)
[2023-06-13 23:02] LABS: ALBUMIN 3.6 g/dl (3.4-5.0); BLOOD UREA NITROGEN 10.2 mg/dL (7-18); MAGNESIUM 2.2 mg/dL (1.8-2.4)
[2023-06-13 23:05] LABS: CREATININE 0.9 mg/dL (0.55-1.3)
[2023-06-13 23:07] LABS: BILIRUBIN,TOTAL 0.2 mg/dL (0.2-1); TOT PROT 8.3 g/dl (6.4-8.2)
[2023-06-13] MEDS ORDERED: LIDOCAINE 4% PATCH TP ONE (23:53)
[2023-06-13] MEDS: LIDOCAINE 4% PATCH TP ONE (23:55)
[2023-06-13] MEDS: LIDOCAINE PATCH REMOVAL MC SCH (23:55)
[2023-06-14] MEDS ORDERED: ACETAMINOPHEN 325 MG TABLET (FP) PO PRN (02:43)
[2023-06-14] MEDS: HYDROCHLOROTHIAZIDE 25 MG TABLET (FP) PO ONE (03:00)
[2023-06-14] MEDS ORDERED: HEPARIN NA (PORCINE) 5,000 UNITS/ML 1ML VIAL ONE (05:40)
[2023-06-14] MEDS: HEPARIN NA (PORCINE) 5,000 UNITS/ML 1ML VIAL SQ SCH (05:41)
[2023-06-14] MEDS ORDERED: LEVOTHYROXINE NA 75 MCG TABLET (FP) PO SCH (07:00)
[2023-06-14 08:34] LABS: POTASSIUM 4.3 mmol/L (3.5-5.1)
[2023-06-14 08:35] LABS: BASO % 0.5 % (0-2.0); CALCIUM 9.5 mg/dL (8.5-10.1); EOS % 11.1 % (0-4.5); HEMATOCRIT 38.4 % (32.4-45.2); LYMPH % 41.8 % (8-40); MCH 29.8 pg (25.7-33.7); MEAN CELL VOLUME 87.8 fl (80-96); MEAN PLT VOLUME 9.4 fl (7.5-11.1); MONO % 7.3 % (3.8-10.2); NEUT % 39.3 % (42.8-82.8); PLATELET COUNT 237 10^3/uL (134-434); RBC 4.37 M/mm3 (3.60-5.2); RDW 14.4 % (11.6-15.6)
[2023-06-14 08:36] LABS: BLOOD UREA NITROGEN 8.7 mg/dL (7-18)
[2023-06-14 08:39] LABS: CREATININE 0.7 mg/dL (0.55-1.3)
[2023-06-14] MEDS ORDERED: REMDESIVIR 200 MG in SODIUM CHLORIDE 250 ML IVPB ONE (10:00)
[2023-06-14 10:03] VITALS: TEMP 97.6
[2023-06-14] MEDS: LOSARTAN POTASSIUM 50 MG TABLET PO SCH (10:40)
[2023-06-14] MEDS: HYDROCHLOROTHIAZIDE 12.5 MG CAPSULE (FP) PO SCH (10:40)
[2023-06-14 11:27] VITALS: BP 147/70; PULSE 78; RESP 16
[2023-06-14] MEDS ORDERED: LIDOCAINE PATCH REMOVAL MC ONE (12:00)
[2023-06-14] MEDS ORDERED: ATORVASTATIN CA 10 MG TABLET (FP) PO SCH (22:00)
[2023-06-15] MEDS ORDERED: REMDESIVIR 100 MG in SODIUM CHLORIDE 250 ML IVPB SCH (10:00)
== END 2023-06-14 11:37 | disposition home or self-care (01) ==
LOC: JER 21:56 → JERBED 06-14 00:23
PROVIDERS: ADMIT Internal Medicine; ATTEND Nurse Practitioner Acute Care
PROC: 3E033NZ Introduction of Analgesics, Hypnotics, Sedatives into Peripheral Vein, Percutaneous Approach (ICD-10-PCS; principal; 2023-06-14)
PROC: 3E023GC Introduction of Other Therapeutic Substance into Muscle, Percutaneous Approach (ICD-10-PCS; 2023-06-14)
DX: I1A.0 Resistant hypertension (principal); U07.1 COVID-19; M25.512 Pain in left shoulder; E03.9 Hypothyroidism, unspecified; E78.00 Pure hypercholesterolemia, unspecified; G89.29 Other chronic pain; M54.9 Dorsalgia, unspecified; E78.5 Hyperlipidemia, unspecified
CPT/HCPCS: 0241U-QW; 36415; 71046-TC-FY; 73030-TC-LT-FY; 73200-TC-RT; 80048; 80053; 82550; 83735; 84484; 85025; 85610; 85730; 93005; 93010; 93971; 96372; 96374; 99285-25; G0378; J0131; J1644